=== PATIENT | female | born 1965 | race Caucasian/White ===

== ENCOUNTER 2016-05-14 01:47 | Emergency (ER) | payer MEDICARE, MEDICAID ==
[~2016-05-14] VITALS: Ht 175.3 cm; Wt 80.0 kg
[~2016-05-14 01:47] MED LIST: CLON2TAB2 PO; CLOZ100T18 PO; CLOZ50TA PO; LEVO50TA5 PO; LITH150C PO; LITH600C PO; LORA2TAB99 PO; METF10002 PO; METF850T2 PO
[2016-05-14 03:19] LABS: HEMOGLOBIN 12.4 g/dL (11.7-16.4)
[2016-05-14 03:32] LABS: BLOOD UREA NITROGEN 17 mg/dL (7-18)
[2016-05-14 03:37] LABS: ASPARTATE AMINO TRANSFERASE 19 U/L (15-37)
[2016-05-14 03:39] LABS: ACETAMINOPHEN < 2 mcg/mL (10-30)
[2016-05-14 04:04] VITALS: BP 98/63
== END 2016-05-14 05:34 | disposition home or self-care (01) ==
LOC: ED 05:17
DX: F29 Unspecified psychosis not due to a substance or known physiological condition (principal); F22 Delusional disorders; E11.9 Type 2 diabetes mellitus without complications
CPT/HCPCS: 36415; 80053; 80307; 80329; 85025; 99284; G0480

== ENCOUNTER 2016-12-19 12:36 | Emergency (ER) | payer MEDICARE, MEDICAID ==
[~2016-12-19] VITALS: Ht 172.7 cm; Wt 75.0 kg
[2016-12-19 12:47] VITALS: BP 91/55
[2016-12-19 13:06] LABS: HEMATOCRIT 41.9 % (34.6-47.8); WHITE BLOOD COUNT 7.5 x10^3/uL (3.4-10)
[2016-12-19 13:15] LABS: DAU SCREEN DISCLAIMER
[2016-12-19 13:18] LABS: BLOOD UREA NITROGEN 12 mg/dL (7-18)
[2016-12-19 13:24] LABS: ACETAMINOPHEN < 2 mcg/mL (10-30)
== END 2016-12-19 14:12 | disposition home or self-care (01) ==
LOC: ED 13:50
DX: F25.9 Schizoaffective disorder, unspecified (principal); E11.65 Type 2 diabetes mellitus with hyperglycemia; F41.9 Anxiety disorder, unspecified; G30.9 Alzheimer's disease, unspecified; F02.80 Dementia in other diseases classified elsewhere, unspecified severity, without behavioral disturbance, psychotic disturbance, mood disturbance, and anxiety
CPT/HCPCS: 36415; 80048; 80307; 80329; 81001; 82040; 84703; 85025; 87077; 87086; 87186; 99284; G0479; G0480

== ENCOUNTER 2017-08-10 09:19 | Emergency (ER) | payer MEDICARE, MEDICAID ==
[~2017-08-10] VITALS: Ht 170.2 cm; Wt 78.0 kg
[2017-08-10 09:22] VITALS: BP 132/74
== END 2017-08-10 10:28 | disposition home or self-care (01) ==
LOC: ED 10:18
DX: E11.9 Type 2 diabetes mellitus without complications (principal); F25.9 Schizoaffective disorder, unspecified; F32.9 Major depressive disorder, single episode, unspecified; G30.9 Alzheimer's disease, unspecified; F02.80 Dementia in other diseases classified elsewhere, unspecified severity, without behavioral disturbance, psychotic disturbance, mood disturbance, and anxiety; Z88.8 Allergy status to other drugs, medicaments and biological substances
CPT/HCPCS: 82962; 99282; 99283

== ENCOUNTER 2018-08-19 16:12 | Emergency (ER) | payer MEDICARE, MEDICAID ==
[~2018-08-19] VITALS: Ht 167.6 cm; Wt 70.0 kg
[~2018-08-19 16:12] MED LIST changes: -CLON2TAB2 PO; +CLON2TAB9 PO; +METF850T10 PO; -METF850T2 PO
[2018-08-19 16:21] VITALS: BP 136/74
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
[2018-08-19 16:47] LABS: BASOPHILS # (AUTO) 0.03 x10^3/uL (0-0.1); BASOPHILS % (AUTO) 0 % (0-1); EOSINOPHILS # (AUTO) 0.18 x10^3/uL (0-0.4); EOSINOPHILS % (AUTO) 2 % (1-7); LYMPHOCYTES # (AUTO) 2.41 x10^3/uL (1-3.4); LYMPHOCYTES % (AUTO) 28 % (22-44); MD NO; MEAN CORPUSCULAR HEMOGLOBIN 30.2 pg (27.0-34.8); MEAN CORPUSCULAR HGB CONC 33.3 g/dL (32.4-35.8); MEAN CORPUSCULAR VOLUME 90.8 fL (80-100); MEAN PLATELET VOLUME 8.2 fL (7.4-10.4); MONOCYTES # (AUTO) 0.49 x10^3/uL (0.2-0.8); MONOCYTES % (AUTO) 6 % (2-9); NEUTROPHILS # (AUTO) 5.55 x10^3/uL (1.8-6.8); NEUTROPHILS % (AUTO) 64 % (42-75); PLATELET COUNT 257 x10^3/uL (130-400); RED BLOOD COUNT 5.03 x10^6/uL (3.82-5.3); RED CELL DISTRIBUTION WIDTH 13.4 % (9.6-15.2)
[2018-08-19 16:58] LABS: ALANINE AMINOTRANSFERASE 24 U/L (12-78); ALBUMIN 3.9 g/dL (3.4-5.0); ANION GAP 5 mmol/L (5-15); CALCIUM 9.2 mg/dL (8.5-10.1); CHLORIDE 110 mmol/L (98-107); CREATININE 1.02 mg/dL (0.55-1.02); SALICYLATE LEVEL 3.8 mg/dL (2.8-20.0)
--- NOTE | 2018-08-19 17:07 | NUR ---
[facility] NOTIFIED, LEFT MESSAGE @ [id number]
[2018-08-19 17:09] LABS: ALKALINE PHOSPHATASE 124 U/L (45-117); BILIRUBIN,TOTAL 0.8 mg/dL (0.2-1.0); TOTAL PROTEIN 7.1 g/dL (6.4-8.2)
--- NOTE | 2018-08-19 17:19 | NUR ---
PT INSURANCE IS MEDICARE. SOC NOTIFIED AT [id number]
--- NOTE | 2018-08-19 18:13 | NUR ---
PT MORE QUIET AT THIS TIME. UOB TO BATHROOM. PT GAVE TOO SMALL OF A SAMPLE TO USE. IN ANSWER TO QUESTIONS, PT STATES SHE LIVES IN AN APARTMENT AT [facility] AND THAT SOMEONE BRINGS HER FOOD AND HELPS HER WITH MEDS BUT THEY DID NOT SHOW UP TODAY. PT STATES SHE IS MENTALLY ILL AND SO HER BROTHER DOESN'T TALK TO HER. PT PROVIDED FOOD TRAY
--- NOTE | 2018-08-19 18:21 | NUR ---
REPORT GIVEN TO SOC ABOUT HOW PT PRESENTED AND HOW SHE IS DOING NOW
--- NOTE | 2018-08-19 19:03 | NUR ---
INFORMED BY TELEPSYCH THAT HE IS RECOMMENDING INPATIENT PSYCH ADMISSION AND MAIL MANAGER. REPORT TO EVANGELINA PERALTA
--- NOTE | 2018-08-19 19:12 | NUR ---
REPORT OF PT FROM FABIAN FERNANDEZ AND ASSUMING CARE OF PT AT THIS TIME. PT AMBULATES TO RESTROOM SPEAKING WITH FLIGHT OF IDEAS. ERP NOTIFIED OF NEED FOR MEDICATIONS. DIABETIC EDUCATOR KASSANDRA INFORMED OF NEED FOR SITTER FOR DIRECT OBSERVATION OF PT AT ALL TIMES.
[2018-08-19] MEDS ORDERED: LORazepam 1MG TABLET ONE (19:44)
[2018-08-19] MEDS ORDERED: OLANZAPINE 5 MG TABLET ONE (19:44)
--- NOTE | 2018-08-19 19:49 | NUR ---
PT MEDICATED PER APR. PT URINE COLLECTED AND WALKED TO LAB.
[2018-08-19 19:57] LABS: MICROSCOPIC AUTO
[2018-08-19 19:58] LABS: CULTURE INDICATED? YES
[2018-08-19] MEDS ORDERED: LORazepam 1MG TABLET PO ONE (20:00)
[2018-08-19] MEDS ORDERED: OLANZAPINE 5 MG TABLET PO ONE (20:00)
--- NOTE | 2018-08-19 20:05 | NUR ---
tp: FAXED TO [facility]
[2018-08-19 20:14] LABS: AMPHETAMINE SCREEN, URINE Negative (Negative); BARBITURATE SCREEN, URINE Negative (Negative); BENZODIAZEPINE SCREEN, URINE Negative (Negative); CANNABINOID SCREEN, URINE Negative (Negative); COCAINE SCREEN, URINE Negative (Negative); METHADONE SCREEN, URINE Negative (Negative); OPIATE SCREEN, URINE Negative (Negative)
--- NOTE | 2018-08-19 20:34 | NUR ---
RECEIVED REPORT FROM FABIAN HUTCHINSON TO ASSUME CARE OF PT. PT. MOVED TO ED 38 AND ROOM IS SECURED WITH SITTER IN PERRIN.
--- NOTE | 2018-08-19 20:35 | NUR ---
LATE ENTRY: PT. BELONGINGS REMOVED AND SECURED IN LOCKER. PT. DENIES NEEDS.
--- NOTE | 2018-08-19 20:35 | NUR ---
TP:packet sent to all other facilities
--- NOTE | 2018-08-19 20:50 | NUR ---
[facility] AT TO EVAL PT. FOR ADMISSION.
[2018-08-19] MEDS ORDERED: ZIPRASIDONE 20 MG INJ IM PRN (21:30)
[2018-08-19] MEDS ORDERED: ACETAMINOPHEN 325 MG TABLET PO PRN (21:30)
[2018-08-19] MEDS ORDERED: DOCUSATE 100 MG CAPSULE PO PRN (21:30)
[2018-08-19] MEDS ORDERED: NICOTINE 14MG/24 HR PATCH.TD24 TD SCH (21:30)
[2018-08-19] MEDS ORDERED: NICOTINE 14MG/24 HR PATCH.TD24 ONE (21:34)
--- NOTE | 2018-08-19 21:43 | NUR ---
TP: leslie from [facility] declined pt.
--- NOTE | 2018-08-19 22:23 | NUR ---
REPORT CALLED TO FABIAN MCDANIEL. FLOOR NOT READY FOR PT. UNTIL REGISTRATIONS GIVES NEW V-NUMBER. 3E TO NOTIFY ED WHEN PT. CAN GO UP.
--- NOTE | 2018-08-19 22:30 | NUR ---
FLOOR READY FOR PT. TRANSPORT.
[2018-08-20] MEDS ORDERED: INSULIN REGULAR 100 UNITS/ML, 3ML VIAL SQ-INSULIN SCH (07:00)
== END 2018-08-19 22:31 ==
LOC: ED 16:28 → UNDOADMIN 19:40 → EDIP 19:40 → ED 22:31
DX: F29 Unspecified psychosis not due to a substance or known physiological condition (principal); F31.9 Bipolar disorder, unspecified; F20.9 Schizophrenia, unspecified; F41.1 Generalized anxiety disorder
CPT/HCPCS: 36415; 80053; 80307; 81001; 84443; 85025; 87086; 99285

== ENCOUNTER 2018-08-19 22:23 | Inpatient (IN) | payer MEDICARE, MEDICAID ==
[~2018-08-19] VITALS: Ht 172.7 cm; Wt 95.6 kg
[2018-08-19] MEDS ORDERED: ACETAMINOPHEN 325 MG TABLET PO PRN (22:30)
[2018-08-19] MEDS ORDERED: POLYETHYLENE GLYCOL 17 GM PACKET PO PRN (22:30)
[2018-08-19] MEDS ORDERED: DOCUSATE 100 MG CAPSULE PO PRN (22:30)
[2018-08-19] MEDS ORDERED: BISACODYL 10 MG SUPP PR PRN (22:30)
[2018-08-20 01:23] VITALS: BP 133/82
[2018-08-20] MEDS ORDERED: ACETAMINOPHEN 325 MG TABLET PO PRN (04:30)
[2018-08-20] MEDS ORDERED: LORazepam 1MG TABLET PO PRN (05:00)
[2018-08-20 07:00] VITALS: BP 122/87
[2018-08-20] MEDS ORDERED: metFORMIN 850 MG TABLET PO SCH (09:00)
[2018-08-20 10:24] LABS: BASOPHILS # (AUTO) 0.03 x10^3/uL (0-0.1); BASOPHILS % (AUTO) 0 % (0-1); EOSINOPHILS # (AUTO) 0.15 x10^3/uL (0-0.4); EOSINOPHILS % (AUTO) 2 % (1-7); LYMPHOCYTES # (AUTO) 1.55 x10^3/uL (1-3.4); LYMPHOCYTES % (AUTO) 25 % (22-44); MD NO; MEAN CORPUSCULAR HEMOGLOBIN 30.1 pg (27.0-34.8); MEAN CORPUSCULAR VOLUME 91.3 fL (80-100); MEAN PLATELET VOLUME 8.6 fL (7.4-10.4); MONOCYTES # (AUTO) 0.41 x10^3/uL (0.2-0.8); MONOCYTES % (AUTO) 7 % (2-9); NEUTROPHILS # (AUTO) 3.98 x10^3/uL (1.8-6.8); NEUTROPHILS % (AUTO) 65 % (42-75); PLATELET COUNT 212 x10^3/uL (130-400); RED BLOOD COUNT 4.63 x10^6/uL (3.82-5.3); RED CELL DISTRIBUTION WIDTH 13.4 % (9.6-15.2)
[2018-08-20 10:33] LABS: HCT (SEDRATE) 42.2 % (34.6-47.8)
[2018-08-20 10:34] LABS: ALANINE AMINOTRANSFERASE 25 U/L (12-78); CALCIUM 8.7 mg/dL (8.5-10.1); CHLORIDE 107 mmol/L (98-107)
[2018-08-20 10:59] LABS: ALBUMIN 3.5 g/dL (3.4-5.0); ALKALINE PHOSPHATASE 114 U/L (45-117); ANION GAP 6 mmol/L (5-15); BILIRUBIN,TOTAL 0.9 mg/dL (0.2-1.0); CHOLESTEROL, TOTAL 124 mg/dL (140-239); CREATININE 1.09 mg/dL (0.55-1.02); FREE T4 (FREE THYROXINE) 0.97 ng/dL (0.76-1.46); HDL CHOL % 33 % (28-40); HDL CHOLESTEROL (DIRECT) 41 mg/dL (40-60); LDL CHOLESTEROL,CALCULATED 49 mg/dL (54-169); LDL/HDL RATIO 1.2 (0.5-3.0); THYROID STIMULATING HORMONE 0.712 mIU/L (0.358-3.740); TOTAL PROTEIN 6.5 g/dL (6.4-8.2); TRIGLYCERIDES 170 mg/dL (50-200); VLDL CHOLESTEROL 34 mg/dL (0-25)
[2018-08-20] MEDS: LEVOTHYROXINE 50 MCG TABLET PO SCH ×2 (11:00→11:27)
[2018-08-20] MEDS: LITHIUM CARBONATE 300 MG CAPSULE PO SCH ×2 (11:25→20:14)
[2018-08-20] MEDS: NICOTINE 14MG/24 HR PATCH.TD24 TD SCH (11:28)
[2018-08-20] MEDS: metFORMIN 850 MG TABLET PO SCH ×2 (11:28→20:14)
[2018-08-20] MEDS: CLOZAPINE 50 MG HOMEMEDPO SCH (11:29)
[2018-08-20] MEDS: LORazepam 1MG TABLET PO PRN (17:12)
[2018-08-20] MEDS ORDERED: GLUCAGON 1 MG IM PRN (18:30)
[2018-08-20] MEDS ORDERED: DEXTROSE 4 GM TAB.CHEW PO PRN (18:30)
[2018-08-20] MEDS ORDERED: DEXTROSE 50%, 50ML SYRINGE IVPush PRN (18:30)
[2018-08-20 19:44] VITALS: BP 126/78
[2018-08-20] MEDS: SODIUM CHLORIDE FLUSH 10ML SYR IVF SCH (20:15)
[2018-08-20] MEDS: INSULIN LISPRO 100 UNITS/ML, PEN SQ-INSULIN SCH (20:53)
[2018-08-21] MEDS: OLANZAPINE 5 MG TABLET PO PRN ×2 (00:33→13:44)
[2018-08-21] MEDS: LORazepam 1MG TABLET PO PRN ×2 (00:34→13:44)
[2018-08-21 07:16] VITALS: BP 123/81
[2018-08-21] MEDS: INSULIN LISPRO 100 UNITS/ML, PEN SQ-INSULIN SCH ×4 (07:36→20:41)
[2018-08-21] MEDS: NICOTINE 14MG/24 HR PATCH.TD24 TD SCH (08:15)
[2018-08-21] MEDS: metFORMIN 850 MG TABLET PO SCH ×2 (08:15→20:39)
[2018-08-21] MEDS: LITHIUM CARBONATE 300 MG CAPSULE PO SCH ×2 (08:15→20:40)
[2018-08-21] MEDS: LEVOTHYROXINE 50 MCG TABLET PO SCH (08:15)
[2018-08-21] MEDS: CLOZAPINE 50 MG HOMEMEDPO SCH (08:16)
[2018-08-21] MEDS: SODIUM CHLORIDE FLUSH 10ML SYR IVF SCH ×2 (08:21→21:36)
[2018-08-21] MEDS ORDERED: ZIPRASIDONE 20 MG INJ IM PRN (16:30)
[2018-08-21] MEDS: ZIPRASIDONE 20MG CAPSULE PO SCH ×2 (17:38→20:39)
[2018-08-21 19:31] VITALS: BP 95/62
[2018-08-22 07:19] VITALS: BP 118/84
[2018-08-22] MEDS: INSULIN LISPRO 100 UNITS/ML, PEN SQ-INSULIN SCH ×4 (07:59→20:44)
[2018-08-22] MEDS: NICOTINE 14MG/24 HR PATCH.TD24 TD SCH (09:04)
[2018-08-22] MEDS: ZIPRASIDONE 20MG CAPSULE PO SCH ×2 (09:04→20:46)
[2018-08-22] MEDS: LEVOTHYROXINE 50 MCG TABLET PO SCH (09:04)
[2018-08-22] MEDS: SODIUM CHLORIDE FLUSH 10ML SYR IVF SCH ×2 (09:05→20:44)
[2018-08-22] MEDS: metFORMIN 850 MG TABLET PO SCH ×2 (09:05→20:45)
[2018-08-22] MEDS: LITHIUM CARBONATE 300 MG CAPSULE PO SCH ×2 (09:05→20:45)
[2018-08-22] MEDS: LORazepam 1MG TABLET PO PRN (11:24)
[2018-08-22] MEDS ORDERED: CLOZ50TA PO (19:07)
[2018-08-22] MEDS ORDERED: LEVO50TA5 PO (19:07)
[2018-08-22] MEDS ORDERED: METF850T10 PO (19:07)
[2018-08-22] MEDS ORDERED: LITH600C PO (19:07)
[2018-08-22 19:32] VITALS: BP 108/73
[2018-08-23] MEDS: LORazepam 1MG TABLET PO PRN (00:05)
[2018-08-23 07:49] VITALS: BP 130/85
[2018-08-23] MEDS: INSULIN LISPRO 100 UNITS/ML, PEN SQ-INSULIN SCH ×2 (08:01→11:48)
[2018-08-23] MEDS: SODIUM CHLORIDE FLUSH 10ML SYR IVF SCH (08:09)
[2018-08-23] MEDS: LITHIUM CARBONATE 300 MG CAPSULE PO SCH (08:09)
[2018-08-23] MEDS: metFORMIN 850 MG TABLET PO SCH (08:09)
[2018-08-23] MEDS: LEVOTHYROXINE 50 MCG TABLET PO SCH (08:09)
[2018-08-23] MEDS: ZIPRASIDONE 20MG CAPSULE PO SCH (08:09)
[2018-08-23] MEDS: NICOTINE 14MG/24 HR PATCH.TD24 TD SCH (08:10)
== END 2018-08-23 12:00 | disposition left against medical advice (07) | DRG 885 ==
LOC: 3E 22:52
PROVIDERS: ADMIT Counselor Mental Health; ATTEND Counselor Mental Health
DX: F25.0 Schizoaffective disorder, bipolar type (principal); E03.9 Hypothyroidism, unspecified; E11.65 Type 2 diabetes mellitus with hyperglycemia; Z53.21 Procedure and treatment not carried out due to patient leaving prior to being seen by health care provider; F17.210 Nicotine dependence, cigarettes, uncomplicated; Z91.14 Patient's other noncompliance with medication regimen; Z79.84 Long term (current) use of oral hypoglycemic drugs; Z88.8 Allergy status to other drugs, medicaments and biological substances
CPT/HCPCS: 36415; 71045; 80053; 80061; 80178; 82140; 82607; 82962; 84439; 84443; 84703; 85025; 85651; 86592; 93005; J3486; J1815

== ENCOUNTER 2018-08-26 10:43 | Inpatient (IN) | payer MEDICARE, MEDICAID ==
[~2018-08-26] VITALS: Ht 172.7 cm; Wt 113.6 kg
--- NOTE | 2018-08-26 10:55 | NUR ---
Iveth, [place] care provider with [facility], called asking about patient condition. Per Iveth, pt has history of pyschosis and non-compliance with psych medication. Iveth, care provider, provided home med list to RN.
[2018-08-26] MEDS ORDERED: METF500T17 PO (11:20)
[2018-08-26] MEDS ORDERED: GLIP5TAB10 PO (11:20)
[2018-08-26] MEDS ORDERED: BUPR-86 PO (11:20)
[2018-08-26] MEDS ORDERED: ZIPR20CA2 IM (11:25)
[2018-08-26] MEDS ORDERED: Propanolol PO (11:25)
[2018-08-26] MEDS ORDERED: PRAZ2CAP PO (11:27)
[2018-08-26] MEDS ORDERED: ZIPRASIDONE 20MG CAPSULE ONE (11:28)
[2018-08-26] MEDS ORDERED: ZIPRASIDONE 20MG CAPSULE PO ONE (11:30)
[2018-08-26] MEDS ORDERED: HALOPERIDOL 5 MG/ML IVPush ONE (11:30)
[2018-08-26 11:49] LABS: BASOPHILS # (AUTO) 0.02 x10^3/uL (0-0.1); BASOPHILS % (AUTO) 0 % (0-1); EOSINOPHILS # (AUTO) 0.06 x10^3/uL (0-0.4); EOSINOPHILS % (AUTO) 1 % (1-7); LYMPHOCYTES # (AUTO) 1.53 x10^3/uL (1-3.4); LYMPHOCYTES % (AUTO) 19 % (22-44); MD NO; MEAN CORPUSCULAR HEMOGLOBIN 29.3 pg (27.0-34.8); MEAN CORPUSCULAR HGB CONC 32.7 g/dL (32.4-35.8); MEAN CORPUSCULAR VOLUME 89.6 fL (80-100); MEAN PLATELET VOLUME 8.2 fL (7.4-10.4); MONOCYTES # (AUTO) 0.58 x10^3/uL (0.2-0.8); MONOCYTES % (AUTO) 7 % (2-9); NEUTROPHILS # (AUTO) 5.85 x10^3/uL (1.8-6.8); NEUTROPHILS % (AUTO) 73 % (42-75); PLATELET COUNT 234 x10^3/uL (130-400); RED BLOOD COUNT 4.91 x10^6/uL (3.82-5.3); RED CELL DISTRIBUTION WIDTH 13.5 % (9.6-15.2)
--- NOTE | 2018-08-26 11:50 | NUR ---
LATE NOTE ENTRY FOR 1047: Pt presents to Ed by EMS after [employer] found pt "wandering around town and trying to hop a fence." [employer] was sent to pt's home for a wellfare check and pt was not at home. Pt is AO to self and place. Pt's baseline unknown. Pt denies cp, sob, n/v/d, trauma. Pt states, "I am going to kill myself." Pt denies prior SA and pt denies plan. Pt makes statments of elopement. Pt has no neuro defeicits observed and reasoning skills with simple math problems are intact. Pt FSBG by EMS was 204. Pt has unlabored respirations with even chest rise and fall. Sitter near bedside. Call light within reach. Pt connected to NIBP cuff, continous pulse ox, and teletypesetter monitor. Both bedrails up for safety measures. Pt ambulates with steady gait and balance to restroom. Attempted to collect a clean catch UA, but pt unable to urinate into UA cup. Pt aware of need or UA.
[2018-08-26 11:55] LABS: ALANINE AMINOTRANSFERASE 29 U/L (12-78); ALBUMIN 4.2 g/dL (3.4-5.0); ANION GAP 9 mmol/L (5-15); CALCIUM 9.2 mg/dL (8.5-10.1); CHLORIDE 107 mmol/L (98-107); CREATININE 0.96 mg/dL (0.55-1.02)
--- NOTE | 2018-08-26 11:55 | NUR ---
Provided report to FABIAN Mahmood. All questions answered. Pt transfered from room 18 to room 41 with sitter. FABIAN Mahmood to assume care of pt.
[2018-08-26 11:57] LABS: ALKALINE PHOSPHATASE 122 U/L (45-117); BILIRUBIN,TOTAL 0.9 mg/dL (0.2-1.0); TOTAL PROTEIN 7.5 g/dL (6.4-8.2)
[2018-08-26 11:59] LABS: SALICYLATE LEVEL < 1.7 mg/dL (2.8-20.0)
--- NOTE | 2018-08-26 12:48 | NUR ---
Received report from Timoteo PERALTA. Assumed care; patient is awake, alert and oriented to self; denies SI, HI, AH, VH, TH, depression and anxiety; no complains of pain or discomfort at this time; she is eating her served lunch.; assisted to the toilet; sitter at bedside.
[2018-08-26 13:00] LABS: CULTURE INDICATED? YES; MICROSCOPIC AUTO
[2018-08-26 13:10] LABS: AMPHETAMINE SCREEN, URINE Negative (Negative); BARBITURATE SCREEN, URINE Negative (Negative); BENZODIAZEPINE SCREEN, URINE Negative (Negative); CANNABINOID SCREEN, URINE Negative (Negative); COCAINE SCREEN, URINE Negative (Negative); METHADONE SCREEN, URINE Negative (Negative); OPIATE SCREEN, URINE Negative (Negative)
--- NOTE | 2018-08-26 13:45 | NUR ---
Patient is resting on a gurney; not in distress; respiratiors unlabored; room secure; sitter by the hallway for continuous monitoring.
[2018-08-26] MEDS ORDERED: CEFDINIR 300 MG CAPSULE PO ONE (14:30)
[2018-08-26] MEDS ORDERED: CEFDINIR 300 MG CAPSULE ONE (14:33)
--- NOTE | 2018-08-26 14:40 | NUR ---
THROUGHPUT RN: Packet faxed to [facility], [facility], [facility], [facility], and [facility]
--- NOTE | 2018-08-26 14:42 | NUR ---
Patient is resting on a gurney; not in distress; unlabored respirations; room secure; sitter by the hallway for continuous monitoring; first dose of Omnicef given.
--- NOTE | 2018-08-26 14:58 | NUR ---
THROUGHPUT RN: Per RB, patient's chart is currently under review for admission.
--- NOTE | 2018-08-26 15:08 | NUR ---
THROUGHPUT RN: Confirmation fax received from [facility], [facility], [facility], [facility], [place], [facility]
--- NOTE | 2018-08-26 15:11 | NUR ---
THROUGHPUT RN: Patient denied by [facility]
--- NOTE | 2018-08-26 15:50 | NUR ---
Patient is awake, alert and oriented to self; watching TV at this time; able to make needs known. room secure; sitter by the hallway for continuous monitoring.
--- NOTE | 2018-08-26 16:50 | NUR ---
Patient is awake, watching TV; patient kept on asking if she can walk home; this nurse tried to re-orient her to the situation; room is secure; sitter by the hallway for continuous monitoring.
--- NOTE | 2018-08-26 17:17 | NUR ---
Patient started crying loudly and wanting to go home and leave ED; MD Fish notified; medication ordered.
[2018-08-26] MEDS ORDERED: LORazepam 1MG TABLET ONE ×2 (17:20→19:19)
[2018-08-26] MEDS ORDERED: LORazepam 1MG TABLET PO ONE (17:30)
--- NOTE | 2018-08-26 17:38 | NUR ---
Patient is awake watching TV, resting on the gurney; unlabored respirations; room is secure; sitter by the hallway.
--- NOTE | 2018-08-26 17:59 | NUR ---
Patient is currently eating her dinner; sitter by the hallway.
--- NOTE | 2018-08-26 18:40 | NUR ---
Report given to Timoteo PERALTA.
[2018-08-26] MEDS: LORazepam 1MG TABLET PO SCH (20:26)
--- NOTE | 2018-08-26 20:38 | NUR ---
PT RESTING AT THIS TIME. RESPS EVEN AND UNLABORED. SITTER IN HALLWAY
[2018-08-26] MEDS: PRAZOSIN 2 MG CAPSULE PO SCH (21:00)
[2018-08-26] MEDS: BUPROPION 75 MG TABLET PO SCH (21:00)
[2018-08-26] MEDS: ZIPRASIDONE 20MG CAPSULE PO SCH (21:00)
[2018-08-26] MEDS: LITHIUM CARBONATE 300 MG CAPSULE PO SCH (21:00)
[2018-08-26] MEDS: metFORMIN 500 MG TABLET PO SCH (21:00)
--- NOTE | 2018-08-26 22:11 | NUR ---
pt switched into hospital bed from [facility].
--- NOTE | 2018-08-26 22:18 | NUR ---
REPORT OF PT FROM FABIAN ARAUZ AND ASSUMING CARE OF PT AT THIS TIME.
--- NOTE | 2018-08-26 23:22 | NUR ---
PT ASLEEP IN [facility] AT THIS TIME; MARC. SITTER OUTSIDE OF PT ROOM FOR DIRECT OBSERVATION.
--- NOTE | 2018-08-27 00:18 | NUR ---
pt asleep in bed at this time; harsha. sitter outside of pt room for direct observation of pt.
--- NOTE | 2018-08-27 01:53 | NUR ---
pt asleep in [facility] at this time; harsha. sitter outside of pt room for direct observation of pt at this time.
--- NOTE | 2018-08-27 03:18 | NUR ---
PT ASLEEP IN [facility] AT THIS TIME; MARC. SITTER OUTSIDE OF ROOM FOR DIRECT OBSERVATION OF PT.
--- NOTE | 2018-08-27 04:30 | NUR ---
pt sleeping in [facility] at this time; harsha. pt has sitter outside of room for direct observation of pt.
--- NOTE | 2018-08-27 05:26 | NUR ---
pt sleeping in [facility] at this time; harsha. sitter outside of room for direct observation of pt.
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
[2018-08-27] MEDS ORDERED: ZIPRASIDONE 20MG CAPSULE ONE (08:42)
[2018-08-27] MEDS ORDERED: LORazepam 1MG TABLET ONE (08:43)
[2018-08-27] MEDS: LORazepam 1MG TABLET PO SCH ×2 (09:04→19:55)
[2018-08-27] MEDS: ZIPRASIDONE 20MG CAPSULE PO SCH ×2 (09:04→19:55)
[2018-08-27] MEDS: metFORMIN 500 MG TABLET PO SCH ×2 (09:18→19:55)
[2018-08-27] MEDS: BUPROPION 75 MG TABLET PO SCH ×2 (09:21→23:25)
[2018-08-27] MEDS: LEVOTHYROXINE 50 MCG TABLET PO SCH (09:22)
[2018-08-27] MEDS: LITHIUM CARBONATE 300 MG CAPSULE PO SCH ×2 (09:30→19:55)
--- NOTE | 2018-08-27 10:16 | NUR ---
Client is calm, cooperative. She has taken her medications, eaten all of her meal tray. Currently resting in her room, on constant watch by staff.
--- NOTE | 2018-08-27 12:32 | NUR ---
Meal tray ordered. NAD
--- NOTE | 2018-08-27 13:36 | NUR ---
bedside report from vicky rn, pt walking in [place] with aide to "stretch legs". no needs at this time
[2018-08-27 14:23] VITALS: BP 105/70
[2018-08-27 19:17] VITALS: BP 137/92
[2018-08-27] MEDS: CEFDINIR 300 MG CAPSULE PO SCH (19:55)
[2018-08-27] MEDS: PRAZOSIN 2 MG CAPSULE PO SCH (19:55)
[2018-08-27] MEDS ORDERED: NICOTINE 14MG/24 HR PATCH.TD24 TD PRN (21:00)
[2018-08-28 08:26] VITALS: BP 103/70
[2018-08-28] MEDS: LORazepam 1MG TABLET PO SCH ×2 (08:49→20:05)
[2018-08-28] MEDS: ZIPRASIDONE 20MG CAPSULE PO SCH ×2 (08:49→20:05)
[2018-08-28] MEDS: LITHIUM CARBONATE 300 MG CAPSULE PO SCH ×2 (08:50→20:05)
[2018-08-28] MEDS: CEFDINIR 300 MG CAPSULE PO SCH ×2 (08:50→20:05)
[2018-08-28] MEDS: LEVOTHYROXINE 50 MCG TABLET PO SCH (08:53)
[2018-08-28] MEDS: metFORMIN 500 MG TABLET PO SCH ×2 (08:53→20:04)
[2018-08-28] MEDS: BUPROPION 75 MG TABLET PO SCH (08:54)
[2018-08-28] MEDS: LORazepam 1MG TABLET PO PRN (14:32)
[2018-08-28] MEDS ORDERED: ZIPRASIDONE 20MG CAPSULE PO PRN (15:00)
[2018-08-28] MEDS ORDERED: ZIPRASIDONE 20MG CAPSULE PO ONE (15:30)
[2018-08-28 19:09] VITALS: BP 131/79
[2018-08-29] MEDS: LORazepam 1MG TABLET PO PRN ×2 (00:20→16:33)
[2018-08-29 07:05] VITALS: BP 131/92
[2018-08-29] MEDS: LEVOTHYROXINE 50 MCG TABLET PO SCH (07:25)
[2018-08-29] MEDS: LORazepam 1MG TABLET PO SCH ×2 (07:42→19:46)
[2018-08-29] MEDS: ZIPRASIDONE 20MG CAPSULE PO SCH ×2 (07:43→19:45)
[2018-08-29] MEDS: LITHIUM CARBONATE 300 MG CAPSULE PO SCH ×2 (07:44→19:45)
[2018-08-29] MEDS: metFORMIN 500 MG TABLET PO SCH ×2 (07:44→19:45)
[2018-08-29] MEDS: CEFDINIR 300 MG CAPSULE PO SCH (07:45)
[2018-08-29] MEDS: ZIPRASIDONE 20 MG INJ IM PRN (16:32)
[2018-08-30] MEDS: ZIPRASIDONE 20MG CAPSULE PO SCH ×2 (07:40→22:52)
[2018-08-30] MEDS: LITHIUM CARBONATE 300 MG CAPSULE PO SCH ×2 (07:41→22:51)
[2018-08-30] MEDS: LORazepam 1MG TABLET PO SCH ×2 (07:42→23:00)
[2018-08-30] MEDS: metFORMIN 500 MG TABLET PO SCH ×2 (07:42→22:51)
[2018-08-30] MEDS: LEVOTHYROXINE 50 MCG TABLET PO SCH (07:42)
[2018-08-30 08:37] VITALS: BP 109/74
[2018-08-30] MEDS: ACETAMINOPHEN 325 MG TABLET PO PRN (10:54)
[2018-08-30] MEDS: ARIPIPRAZOLE 10 MG TABLET PO SCH (11:49)
[2018-08-30] MEDS: ZIPRASIDONE 20 MG INJ IM PRN (12:55)
[2018-08-30 22:52] VITALS: BP 130/70
[2018-08-30] MEDS: TEMAZEPAM 15 MG CAPSULE PO PRN (22:52)
[2018-08-31] MEDS: LEVOTHYROXINE 50 MCG TABLET PO SCH (07:27)
[2018-08-31] MEDS: ARIPIPRAZOLE 10 MG TABLET PO SCH (07:36)
[2018-08-31] MEDS: metFORMIN 500 MG TABLET PO SCH ×2 (07:37→20:00)
[2018-08-31] MEDS: LORazepam 1MG TABLET PO SCH ×2 (07:38→20:00)
[2018-08-31] MEDS: ZIPRASIDONE 20MG CAPSULE PO SCH ×2 (07:38→20:00)
[2018-08-31] MEDS: LITHIUM CARBONATE 300 MG CAPSULE PO SCH ×2 (07:38→18:53)
[2018-08-31] MEDS: ACETAMINOPHEN 325 MG TABLET PO PRN (08:17)
[2018-08-31 08:35] VITALS: BP 125/72
[2018-08-31] MEDS: LORazepam 1MG TABLET PO PRN (17:04)
[2018-08-31] MEDS: PROPRANOLOL 20 MG TABLET PO SCH (17:04)
[2018-08-31 19:19] VITALS: BP 142/76
[2018-08-31] MEDS: TEMAZEPAM 15 MG CAPSULE PO PRN (20:41)
[2018-09-01] MEDS: LORazepam 1MG TABLET PO PRN ×2 (01:14→14:36)
[2018-09-01] MEDS: PROPRANOLOL 20 MG TABLET PO SCH ×2 (06:36→18:17)
[2018-09-01] MEDS: LEVOTHYROXINE 50 MCG TABLET PO SCH (06:36)
[2018-09-01 06:57] VITALS: BP 125/76
[2018-09-01] MEDS: metFORMIN 500 MG TABLET PO SCH ×2 (07:42→19:58)
[2018-09-01] MEDS: LORazepam 1MG TABLET PO SCH ×2 (07:42→19:58)
[2018-09-01] MEDS: ARIPIPRAZOLE 10 MG TABLET PO SCH (07:43)
[2018-09-01] MEDS: LITHIUM CARBONATE 300 MG CAPSULE PO SCH ×2 (07:43→19:59)
[2018-09-01] MEDS: ZIPRASIDONE 20MG CAPSULE PO SCH ×2 (08:34→19:59)
[2018-09-01] MEDS: ZIPRASIDONE 20 MG INJ IM PRN (14:38)
[2018-09-01 19:08] VITALS: BP 123/76
[2018-09-01] MEDS: TEMAZEPAM 15 MG CAPSULE PO PRN (20:42)
[2018-09-02] MEDS: LORazepam 1MG TABLET PO PRN ×3 (01:21→14:28)
[2018-09-02] MEDS: PROPRANOLOL 20 MG TABLET PO SCH ×2 (05:03→17:14)
[2018-09-02] MEDS: LEVOTHYROXINE 50 MCG TABLET PO SCH (05:03)
[2018-09-02] MEDS: LORazepam 1MG TABLET PO SCH ×2 (07:38→20:07)
[2018-09-02] MEDS: ARIPIPRAZOLE 10 MG TABLET PO SCH (07:39)
[2018-09-02] MEDS: ZIPRASIDONE 20MG CAPSULE PO SCH ×2 (07:39→20:06)
[2018-09-02] MEDS: metFORMIN 500 MG TABLET PO SCH ×2 (07:39→21:00)
[2018-09-02] MEDS: LITHIUM CARBONATE 300 MG CAPSULE PO SCH ×2 (07:39→20:07)
[2018-09-02 07:52] VITALS: BP 120/82
[2018-09-02] MEDS: ZIPRASIDONE 20 MG INJ IM PRN (11:50)
[2018-09-02] MEDS: TEMAZEPAM 15 MG CAPSULE PO PRN (20:07)
[2018-09-03] MEDS: LORazepam 1MG TABLET PO PRN (02:38)
[2018-09-03] MEDS: ZIPRASIDONE 20 MG INJ IM PRN ×2 (03:49→12:20)
[2018-09-03] MEDS: LEVOTHYROXINE 50 MCG TABLET PO SCH (07:01)
[2018-09-03] MEDS: PROPRANOLOL 20 MG TABLET PO SCH ×2 (07:02→18:00)
[2018-09-03] MEDS: LITHIUM CARBONATE 300 MG CAPSULE PO SCH ×2 (07:35→20:42)
[2018-09-03] MEDS: ARIPIPRAZOLE 10 MG TABLET PO SCH (07:35)
[2018-09-03] MEDS: metFORMIN 500 MG TABLET PO SCH ×2 (07:35→21:00)
[2018-09-03] MEDS: LORazepam 1MG TABLET PO SCH (07:35)
[2018-09-03] MEDS: ZIPRASIDONE 20MG CAPSULE PO SCH (07:36)
[2018-09-03 08:12] VITALS: BP 126/82
[2018-09-03 18:59] VITALS: BP 120/74
[2018-09-03] MEDS ORDERED: LOPERAMIDE 2 MG CAPSULE PO PRN (19:00)
[2018-09-03] MEDS: TEMAZEPAM 15 MG CAPSULE PO PRN (20:42)
[2018-09-03] MEDS: DIAZEPAM 10 MG TABLET PO PRN (20:42)
[2018-09-03] MEDS: QUETIAPINE 100MG TABLET PO SCH (20:42)
[2018-09-04] MEDS: PROPRANOLOL 20 MG TABLET PO SCH ×2 (07:21→18:09)
[2018-09-04] MEDS: LEVOTHYROXINE 50 MCG TABLET PO SCH (07:21)
[2018-09-04 07:37] VITALS: BP 108/67
[2018-09-04] MEDS: ARIPIPRAZOLE 5 MG TABLET PO SCH (07:44)
[2018-09-04] MEDS: LITHIUM CARBONATE 300 MG CAPSULE PO SCH ×2 (07:46→21:45)
[2018-09-04] MEDS: QUETIAPINE 100MG TABLET PO SCH ×2 (07:47→21:44)
[2018-09-04] MEDS: metFORMIN 500 MG TABLET PO SCH ×2 (07:47→21:43)
[2018-09-04 19:10] VITALS: BP 143/80
[2018-09-05] MEDS ORDERED: DIAZEPAM 5 MG TABLET ONE ×2 (01:00→08:40)
[2018-09-05] MEDS: DIAZEPAM 10 MG TABLET PO PRN ×3 (01:04→23:19)
[2018-09-05] MEDS: TEMAZEPAM 15 MG CAPSULE PO PRN ×2 (01:04→23:28)
[2018-09-05] MEDS: LITHIUM CARBONATE 300 MG CAPSULE PO SCH ×2 (08:04→21:11)
[2018-09-05] MEDS: LEVOTHYROXINE 50 MCG TABLET PO SCH (08:05)
[2018-09-05] MEDS: PROPRANOLOL 20 MG TABLET PO SCH ×2 (08:05→17:57)
[2018-09-05] MEDS: QUETIAPINE 100MG TABLET PO SCH ×2 (08:06→21:10)
[2018-09-05] MEDS: metFORMIN 500 MG TABLET PO SCH ×2 (08:06→21:11)
[2018-09-05] MEDS: ARIPIPRAZOLE 5 MG TABLET PO SCH ×2 (08:10→11:38)
[2018-09-05 19:14] VITALS: BP 126/77
[2018-09-06] MEDS: LEVOTHYROXINE 50 MCG TABLET PO SCH (08:57)
[2018-09-06] MEDS: QUETIAPINE 100MG TABLET PO SCH ×2 (08:59→20:55)
[2018-09-06] MEDS: LITHIUM CARBONATE 300 MG CAPSULE PO SCH ×2 (08:59→20:55)
[2018-09-06] MEDS: ARIPIPRAZOLE 5 MG TABLET PO SCH (09:00)
[2018-09-06] MEDS: PROPRANOLOL 20 MG TABLET PO SCH ×2 (09:00→20:55)
[2018-09-06 09:02] VITALS: BP 133/80
[2018-09-06] MEDS: metFORMIN 500 MG TABLET PO SCH ×2 (09:04→20:54)
[2018-09-06] MEDS ORDERED: DIAZEPAM 5 MG TABLET ONE (09:43)
[2018-09-06] MEDS: DIAZEPAM 10 MG TABLET PO PRN (11:00)
[2018-09-06 20:53] VITALS: BP 122/70
== END 2018-09-07 02:00 | DRG 885 ==
LOC: ED 18:13 → EDIP 08-27 10:41 → INTOOBSV 08-27 10:41 → 2N 08-27 14:34 → OBSVTOIN 08-27 18:01 → 4NOR 08-31 18:41 → ICU 09-03 12:09
PROVIDERS: ADMIT Internal Medicine; ATTEND Internal Medicine
DX: F25.0 Schizoaffective disorder, bipolar type (principal); Z91.83 Wandering in diseases classified elsewhere; F32.9 Major depressive disorder, single episode, unspecified; E03.9 Hypothyroidism, unspecified; E11.9 Type 2 diabetes mellitus without complications; F02.80 Dementia in other diseases classified elsewhere, unspecified severity, without behavioral disturbance, psychotic disturbance, mood disturbance, and anxiety; F17.210 Nicotine dependence, cigarettes, uncomplicated; F41.1 Generalized anxiety disorder; G30.9 Alzheimer's disease, unspecified; N30.90 Cystitis, unspecified without hematuria; Z79.84 Long term (current) use of oral hypoglycemic drugs; Z88.8 Allergy status to other drugs, medicaments and biological substances
CPT/HCPCS: 36415; 80053; 80178; 80307; 81001; 85025; 87086; G0378; J3486

== ENCOUNTER 2018-10-02 15:28 | Emergency (ER) | payer MEDICARE, MEDICAID ==
[~2018-10-02] VITALS: Ht 167.6 cm; Wt 85.0 kg
[~2018-10-02 15:28] MED LIST changes: +BUPR-86 PO; +GLIP5TAB10 PO; +METF500T17 PO; +PRAZ2CAP PO; +Propanolol PO; +ZIPR20CA2 IM
[2018-10-02 15:48] VITALS: BP 114/64
--- NOTE | 2018-10-02 16:00 | NUR ---
pt jason mathew from [facility] for n/v x1 day. pt jenaro am cooperative. sitter at doorway for sontinuous monitoring. assessment complete. orders received. ua collected and sent. labs drawn. awaiting resutls.
[2018-10-02 16:01] LABS: BASOPHILS # (AUTO) 0.03 x10^3/uL (0-0.1); BASOPHILS % (AUTO) 0 % (0-1); EOSINOPHILS # (AUTO) 0.15 x10^3/uL (0-0.4); EOSINOPHILS % (AUTO) 2 % (1-7); LYMPHOCYTES # (AUTO) 1.97 x10^3/uL (1-3.4); LYMPHOCYTES % (AUTO) 30 % (22-44); MD NO; MEAN CORPUSCULAR HEMOGLOBIN 29.3 pg (27.0-34.8); MEAN CORPUSCULAR VOLUME 91.6 fL (80-100); MEAN PLATELET VOLUME 8.3 fL (7.4-10.4); MONOCYTES % (AUTO) 8 % (2-9); NEUTROPHILS % (AUTO) 60 % (42-75); PLATELET COUNT 221 x10^3/uL (130-400); RED BLOOD COUNT 4.64 x10^6/uL (3.82-5.3)
[2018-10-02 16:09] LABS: ALANINE AMINOTRANSFERASE 27 U/L (12-78); ALBUMIN 3.5 g/dL (3.4-5.0); ANION GAP 9 mmol/L (5-15); CALCIUM 9.2 mg/dL (8.5-10.1); CHLORIDE 106 mmol/L (98-107); CREATININE 1.19 mg/dL (0.55-1.02)
[2018-10-02 16:11] LABS: ALKALINE PHOSPHATASE 91 U/L (45-117); BILIRUBIN,TOTAL 0.2 mg/dL (0.2-1.0); TOTAL PROTEIN 6.8 g/dL (6.4-8.2)
[2018-10-02 16:20] LABS: MICROSCOPIC AUTO
[2018-10-02 16:25] LABS: CULTURE INDICATED? YES
[2018-10-02] MEDS ORDERED: MAGNESIUM CITRATE 300ML ORAL SOL ONE (16:47)
[2018-10-02] MEDS ORDERED: MAGNESIUM CITRATE 300ML ORAL SOL PO ONE (17:00)
--- NOTE | 2018-10-02 17:02 | NUR ---
report to diaz rolon at [facility]. pt ready for transport.
== END 2018-10-02 17:28 ==
LOC: ED 17:22
DX: N30.00 Acute cystitis without hematuria (principal); K59.00 Constipation, unspecified; F25.9 Schizoaffective disorder, unspecified; F32.9 Major depressive disorder, single episode, unspecified; G30.9 Alzheimer's disease, unspecified; F02.80 Dementia in other diseases classified elsewhere, unspecified severity, without behavioral disturbance, psychotic disturbance, mood disturbance, and anxiety; F41.1 Generalized anxiety disorder; E11.9 Type 2 diabetes mellitus without complications
CPT/HCPCS: 36415; 74021; 80053; 81001; 83690; 85025; 87086; 99285

== ENCOUNTER 2019-08-13 12:35 | Emergency (ER) | payer MEDICARE, MEDICAID ==
[~2019-08-13] VITALS: Ht 172.7 cm; Wt 82.0 kg
--- NOTE | 2019-08-13 13:02 | NUR ---
PT BIB [facility], PT STATES SI, STATES WILL HANG HERSELF. PT STATES THE PEOPLE WHERE SHE LIVES ARE "MEAN TO ME, AND IT MAKES ME UPSET." PT UNDRESSED, BELONGINGS IN BAG, IN GOWN ONLY, BELONGINGS LOCKED FOR SAFETY. PT HAS SITTER AT BEDSIDE. ROOM PARTIALLY SECURED, PT REMAINS ON MONITORS, PT IS BRADYCARDIAC IN THE 40'S. URINE COLLECTED AND SENT TO LAB. HARRY PALENCIA NP AT BEDSIDE FOR ASSESSMENT. ERMD AWARE, PT IS BRADYCARDIAC, PT TAKES PROPANOLOL.
--- NOTE | 2019-08-13 13:11 | NUR ---
1 OF 1 BAG OF BELONGINGS PLACED IN PSYCH LOCKER FOR ROOM 2
[2019-08-13 13:15] LABS: BASOPHILS # (AUTO) 0.06 x10^3/uL (0-0.1); BASOPHILS % (AUTO) 1 % (0-1); EOSINOPHILS # (AUTO) 0.28 x10^3/uL (0-0.4); EOSINOPHILS % (AUTO) 4 % (1-7); LYMPHOCYTES # (AUTO) 2.38 x10^3/uL (1-3.4); LYMPHOCYTES % (AUTO) 31 % (22-44); MD NO; MEAN CORPUSCULAR HEMOGLOBIN 31.2 pg (27.0-34.8); MEAN CORPUSCULAR HGB CONC 32.8 g/dL (32.4-35.8); MEAN CORPUSCULAR VOLUME 95.2 fL (80-100); MEAN PLATELET VOLUME 7.8 fL (7.4-10.4); MONOCYTES # (AUTO) 0.49 x10^3/uL (0.2-0.8); MONOCYTES % (AUTO) 6 % (2-9); NEUTROPHILS # (AUTO) 4.45 x10^3/uL (1.8-6.8); NEUTROPHILS % (AUTO) 58 % (42-75); PLATELET COUNT 333 x10^3/uL (130-400); RED BLOOD COUNT 4.07 x10^6/uL (3.82-5.3); RED CELL DISTRIBUTION WIDTH 14.1 % (9.6-15.2)
[2019-08-13 13:26] LABS: ALBUMIN 3.5 g/dL (3.4-5.0); ANION GAP 4 mmol/L (5-15); CALCIUM 9.1 mg/dL (8.5-10.1); CHLORIDE 109 mmol/L (98-107); CREATININE 0.82 mg/dL (0.55-1.02)
[2019-08-13 13:27] LABS: BARBITURATE SCREEN, URINE Negative (Negative); BENZODIAZEPINE SCREEN, URINE Positive (Negative); CANNABINOID SCREEN, URINE Negative (Negative); COCAINE SCREEN, URINE Negative (Negative); METHADONE SCREEN, URINE Negative (Negative); OPIATE SCREEN, URINE Negative (Negative)
[2019-08-13 13:32] LABS: AMPHETAMINE SCREEN, URINE Negative (Negative)
[2019-08-13 13:36] LABS: SALICYLATE LEVEL < 1.7 mg/dL (2.8-20.0)
[2019-08-13] MEDS ORDERED: OLANZAPINE 10 MG TABLET PO SCH (14:00)
--- NOTE | 2019-08-13 14:05 | NUR ---
PT RESTING IN BED, EATING MEAL TRAY. PT REMAINS ON MONITORS, HR REMAINS IN 40'S PT OTHRWISE ASYMPTOMATIC. SITTER AT BEDSIDE. PT IS ON LEGAL HOLD. PT CALM AND COOPERATIVE. CONT TO MONITOR.
[2019-08-13] MEDS ORDERED: OLANZAPINE 10 MG TABLET ONE (14:25)
[2019-08-13] MEDS ORDERED: LITH300C PO (15:40)
[2019-08-13] MEDS ORDERED: ARIP2TAB2 PO (15:41)
[2019-08-13] MEDS ORDERED: ATOR20TA37 PO (15:42)
[2019-08-13] MEDS ORDERED: CITA10TA4 PO (15:42)
[2019-08-13] MEDS ORDERED: ATOR20TA PO (15:43)
--- NOTE | 2019-08-13 15:45 | NUR ---
REPORT GIVEN TO DHEERAJ PERALTA. PT OK TO TRANSFER TO PSYCH FLOOR.
--- NOTE | 2019-08-13 16:08 | NUR ---
PT TRANSFERED TO FLOOR. PT HAS ALL OWN BELONGINGS UPON TRANSFER.
[2019-08-13 16:14] VITALS: BP 110/68
[2019-08-13] MEDS ORDERED: BENZTROPINE 1 MG TABLET PO SCH (21:00)
[2019-08-13] MEDS ORDERED: DONEPEZIL 5 MG TABLET PO SCH (21:00)
== END 2019-08-13 17:44 | disposition other institution (70) ==
LOC: ED 14:16
DX: R45.851 Suicidal ideations (principal); E11.9 Type 2 diabetes mellitus without complications; F25.9 Schizoaffective disorder, unspecified; R00.1 Bradycardia, unspecified
CPT/HCPCS: 36415; 80048; 80178; 80307; 82040; 84443; 85025; 93005; 99284

== ENCOUNTER 2019-08-30 20:41 | Emergency (ER) | payer MEDICARE, MEDICAID ==
[~2019-08-30] VITALS: Ht 170.2 cm; Wt 82.0 kg
[~2019-08-30 20:41] MED LIST changes: +ARIP2TAB2 PO; +ATOR20TA PO; +ATOR20TA37 PO; +CITA10TA4 PO; +CITA20TA9 PO; +DONE5TAB52 PO; +HYDR50CA2 PO; +LITH300C PO; +METF500T PO; +OLAN10TA7 PO
--- NOTE | 2019-08-30 20:45 | NUR ---
pt BIB [facility] after being found laying on the street outside [facility]. pt has no medical complaint. pt is unaware of day or date or month, but knows that she is in [place] and is able to answer other questions and follow commands. pt has no shoes on and states that she lives in [place]. no obvious injury and denies injury. no apparent distress. no family at bedside
--- NOTE | 2019-08-30 21:20 | NUR ---
pt has been evaluated by ALEXANDER and has no medical complaint. pt reports that she is staying at [facility]. Attempting to contact [facility] staff to see if she can be sent back to their facility
--- NOTE | 2019-08-30 21:50 | NUR ---
attempted to contact [facility] again regarding if pt is a resident. awaiting call back
--- NOTE | 2019-08-30 22:26 | NUR ---
located housing manageer at [facility] to confirm that pt is a resident in their housing facility on [facility]. Publicity Expert Caro Barriga will be sending someone to pick her up
--- NOTE | 2019-08-30 22:30 | NUR ---
pt has been updaed on POC. pt is calm and cooperative. non-skid socks given as pt is not wearin shoes. PO fluids and snack given. pt sitting up on gurney watching TV. no apparent distress
[2019-08-30 22:59] VITALS: BP 107/66
== END 2019-08-30 23:05 | disposition home or self-care (01) ==
LOC: ED 22:30
DX: F20.9 Schizophrenia, unspecified (principal); E11.9 Type 2 diabetes mellitus without complications; F17.290 Nicotine dependence, other tobacco product, uncomplicated
CPT/HCPCS: 99284; 99406

== ENCOUNTER 2019-09-19 19:09 | Emergency (ER) | payer MEDICARE, MEDICAID ==
[~2019-09-19] VITALS: Ht 172.7 cm; Wt 82.0 kg
[2019-09-19 19:18] VITALS: BP 112/75
--- NOTE | 2019-09-19 20:07 | NUR ---
TASK RN: PT CHECKED INTO ROOM AT THIS TIME. KAJAL RN, AT FOR PT HISTORY AND ASSESSMENT. PT AMBULATED TO RESTROOM WITH SLOW BUT STEADY GAIT TO OBTAIN UA/UDS, BUT PT UNABLE TO VOID AT THIS TIME. PT BELONGINGS COLLECTED AND PLACED IN 1 OF 1 BAGS IN LOCKED STORAGE IN CORRECT BIN. PT ROOM SECURED FOR PT AND STAFF SAFETY. PT PROVIDED WARM BLANKET. PT VERBALIZES UNDERSTANDING OF ER PROCESS AND VERBALIZES UNDERSTANDING. SITTER OUTSIDE OF PT ROOM FOR DIRECT OBSERVATION OF PT AT THIS TIME.
--- NOTE | 2019-09-19 21:26 | NUR ---
PT WAS SENT TO US WITH A SIMPLE HANDWRITTEN MAR FROM SENDING FACILITY, NO OTHER PAPERWORK. CONTACT WITH PROVIDED NUMBER IS NOT POSSIBLE AFTER 6PM. PT AWAITING DISCHARGE, BUT UNABLE TO COMMUNICATE AN ADDRESS. NO CONTACTS ON FILE TO CALL. [facility] STATES THAT THEY HAVE NO ALTERNATIVE NUMBERS, AND HAVE NO WAY TO GET MESSAGES THROUGH TO ANY WELLCARE FACILITIES AFTER HOURS. THIS NURSE WAS INFORMED THAT ALL MESSAGES LEFT IN [place] NIGHT WILL BE ADDRESSED AFTER 9AM THE NEXT BUSINESS DAY. ERP AND CHARGE MADE AWARE. PT PROVIDED WITH WARM BLANKETS. DENIES ANY FURTHER NEEDS AT THIS TIME. CALL LIGHT IN REACH.
--- NOTE | 2019-09-19 22:02 | NUR ---
LITZY, CREDIT DIRECTOR FOR THE WELLCARE DETENTION CONTACTED. STATES PT IS FREE TO COME BACK, REQUESTED AN ANTI NAUSEA MEDICATION OR NOTE TO OK OTC MEDS FROM PROVIDER. ERP NOTIFIED. PT UPDATED ON PLAN OF CARE. TAXI VOUCHER PROVIDED. PT DENIES ANY NEEDS OR CONCERNS AT THIS TIME.
--- NOTE | 2019-09-19 22:35 | NUR ---
PT FEET WASHED, PROVIDED WITH DONATION CLOTHING. PROVIDED WITH TAXI VOUCHER. PT ASSISTED IN DRESSING AND TO DISCHARGE DESK. DENIES ANY FURTHER QUESTIONS OR CONCERNS.
== END 2019-09-19 22:39 | disposition home or self-care (01) ==
LOC: ED 22:30
DX: F25.9 Schizoaffective disorder, unspecified (principal); G30.9 Alzheimer's disease, unspecified; F02.80 Dementia in other diseases classified elsewhere, unspecified severity, without behavioral disturbance, psychotic disturbance, mood disturbance, and anxiety; F32.0 Major depressive disorder, single episode, mild; R11.0 Nausea; E11.9 Type 2 diabetes mellitus without complications
CPT/HCPCS: 99283

== ENCOUNTER 2020-05-29 19:42 | Emergency (ER) | payer MEDICARE, MEDICAID ==
[~2020-05-29] VITALS: Ht 175.3 cm; Wt 82.0 kg
[~2020-05-29 19:42] MED LIST changes: +BENZ0.5T35 PO; +CHOL10003 PO; +DIAZ2TAB3 PO; +LIDO700A20 TD; +MEMA5TAB42 PO; +NICO-485 TD; +PROP80CA3 PO; +PSYL3.4P5 PO
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
[2020-05-29 21:21] LABS: AMPHETAMINE SCREEN, URINE Negative (Negative); BARBITURATE SCREEN, URINE Negative (Negative); BENZODIAZEPINE SCREEN, URINE Positive (Negative); CANNABINOID SCREEN, URINE Negative (Negative); COCAINE SCREEN, URINE Negative (Negative); METHADONE SCREEN, URINE Negative (Negative); OPIATE SCREEN, URINE Negative (Negative)
[2020-05-29 21:23] LABS: BASOPHILS % (AUTO) 1 % (0-1); EOSINOPHILS % (AUTO) 2 % (1-7); LYMPHOCYTES % (AUTO) 31 % (22-44); MEAN CORPUSCULAR HEMOGLOBIN 31.2 pg (27.0-34.8); MEAN CORPUSCULAR HGB CONC 33.5 g/dL (32.4-35.8); MEAN PLATELET VOLUME 8.1 fL (7.4-10.4); MONOCYTES % (AUTO) 8 % (2-9); NEUTROPHILS % (AUTO) 59 % (42-75); PLATELET COUNT 256 x10^3/uL (130-400); RED BLOOD COUNT 4.32 x10^6/uL (3.82-5.3)
[2020-05-29 21:29] LABS: MD NO
[2020-05-29 21:35] LABS: ALBUMIN 3.9 g/dL (3.4-5.0); ANION GAP 4 mmol/L (5-15); CALCIUM 9.1 mg/dL (8.5-10.1); CHLORIDE 110 mmol/L (98-107); CREATININE 0.87 mg/dL (0.55-1.02)
[2020-05-29 21:36] LABS: SALICYLATE LEVEL < 1.7 mg/dL (2.8-20.0)
--- NOTE | 2020-05-29 21:41 | NUR ---
Pt ambulated to BR without difficulty. UA provided and sent. Pt back to bed, calm in room, waiting on telepsych. Sitter outside room. Pt free of harm. Will continue to monitor.
--- NOTE | 2020-05-30 03:00 | NUR ---
Telepsych evaluated patient and ok to DC. penitentiary notified and pt ok to head back to [facility]. All belonging given back to patient. Pt DC'd with taxi back to [facility]. Patient/Caregiver given discharge instructions and they have confirmed that they understand the instructions. Patient ambulatory with steady gait.
[2020-05-30 03:21] VITALS: BP 136/82
== END 2020-05-30 03:26 | disposition home or self-care (01) ==
LOC: ED 05-30 02:56
DX: F25.9 Schizoaffective disorder, unspecified (principal); R45.851 Suicidal ideations; F32.9 Major depressive disorder, single episode, unspecified; E11.9 Type 2 diabetes mellitus without complications; Z88.9 Allergy status to unspecified drugs, medicaments and biological substances
CPT/HCPCS: 36415; 80048; 80143; 80178; 80179; 80307; 80320; 82040; 84703; 85025; 99283; G0480

== ENCOUNTER 2020-06-20 09:36 | Emergency (ER) | payer MEDICARE, MEDICAID ==
[~2020-06-20] VITALS: Ht 170.2 cm; Wt 85.6 kg
--- NOTE | 2020-06-20 09:40 | NUR ---
pt BIB [facility] after being found [place] outside her [facility]. pt report, pt often wanders and was c/o chronic back pain. pt [facility] printed a list of pt medictions to give to [facility] upon admit, pt has no c/o. pt is ambulatoory and in no apparent reps. disress. pt is asking when she can have a doughnut. pt has a long psych hx and has a hx of dementia. calm and cooperative. answering questions and following commands. no vidible injuries noted
--- NOTE | 2020-06-20 10:11 | NUR ---
pt resting on gurney in no apparent distress with eyes closed
--- NOTE | 2020-06-20 10:42 | NUR ---
pt in RAD
--- NOTE | 2020-06-20 11:14 | NUR ---
pt ready for D/C. have attempted to contact pt prison to ick her up. spoke to a switchboard at the number on her medication list
--- NOTE | 2020-06-20 11:45 | NUR ---
pt is unaware of contact information for her [facility] residence resting in position of comfort meal tray ordered
--- NOTE | 2020-06-20 12:23 | NUR ---
pt resting. awaiting meal tray awaiting transport to [facility] via [facility]
--- NOTE | 2020-06-20 12:35 | NUR ---
meal tray delivered
[2020-06-20 13:04] VITALS: BP 112/58
== END 2020-06-20 13:08 | disposition home or self-care (01) ==
LOC: ED 10:05
DX: S39.012A Strain of muscle, fascia and tendon of lower back, initial encounter (principal); E11.9 Type 2 diabetes mellitus without complications; X58.XXXA Exposure to other specified factors, initial encounter; Y93.89 Activity, other specified; Y92.89 Other specified places as the place of occurrence of the external cause; Y99.8 Other external cause status
CPT/HCPCS: 72110; 99283

== ENCOUNTER 2020-06-20 15:20 | Emergency (ER) | payer MEDICARE, MEDICAID ==
[~2020-06-20] VITALS: Ht 172.7 cm; Wt 80.0 kg
[2020-06-20 15:27] VITALS: BP 113/78
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
--- NOTE | 2020-06-20 15:41 | NUR ---
ua collected and wlaked to lab
--- NOTE | 2020-06-20 15:42 | NUR ---
SI PRECAUTIONS IN PLACE, SITTER AT DOORWAY.
[2020-06-20 16:01] LABS: AMPHETAMINE SCREEN, URINE Negative (Negative); BARBITURATE SCREEN, URINE Negative (Negative); BENZODIAZEPINE SCREEN, URINE Positive (Negative); CANNABINOID SCREEN, URINE Negative (Negative); COCAINE SCREEN, URINE Negative (Negative); METHADONE SCREEN, URINE Negative (Negative); OPIATE SCREEN, URINE Negative (Negative)
[2020-06-20 16:10] LABS: ALBUMIN 3.9 g/dL (3.4-5.0); ANION GAP 6 mmol/L (5-15); CALCIUM 9.1 mg/dL (8.5-10.1); CHLORIDE 106 mmol/L (98-107); CREATININE 1.06 mg/dL (0.55-1.02)
[2020-06-20 16:11] LABS: SALICYLATE LEVEL < 1.7 mg/dL (2.8-20.0)
[2020-06-20 16:12] LABS: BASOPHILS % (AUTO) 1 % (0-1); EOSINOPHILS % (AUTO) 2 % (1-7); LYMPHOCYTES % (AUTO) 31 % (22-44); MEAN CORPUSCULAR HEMOGLOBIN 30.7 pg (27.0-34.8); MEAN CORPUSCULAR HGB CONC 33.2 g/dL (32.4-35.8); MEAN PLATELET VOLUME 8.4 fL (7.4-10.4); MONOCYTES % (AUTO) 6 % (2-9); NEUTROPHILS % (AUTO) 59 % (42-75); PLATELET COUNT 279 x10^3/uL (130-400); RED BLOOD COUNT 4.42 x10^6/uL (3.82-5.3)
[2020-06-20 16:16] LABS: MD NO
--- NOTE | 2020-06-20 17:14 | NUR ---
CARRI FRANCO COLLECTED AND WALKED TO LAB
--- NOTE | 2020-06-20 18:15 | NUR ---
pt resting in bed, no needs at this time. resp even and unlabored. sitter at doorway
--- NOTE | 2020-06-20 19:58 | NUR ---
pt resting in room. no needs at this time. pending u admit. sitter at doorway
== END 2020-06-20 21:52 ==
LOC: ED 16:47
DX: R45.851 Suicidal ideations (principal); Z20.822 Contact with and (suspected) exposure to COVID-19; F41.9 Anxiety disorder, unspecified; E11.9 Type 2 diabetes mellitus without complications; F17.210 Nicotine dependence, cigarettes, uncomplicated
CPT/HCPCS: 36415; 80048; 80299; 80307; 80320; 80329; 82040; 85025; 87426; 99285; G0480

== ENCOUNTER 2020-10-28 15:01 | Emergency (ER) | payer MEDICARE, MEDICAID ==
[~2020-10-28] VITALS: Ht 172.7 cm; Wt 80.0 kg
[~2020-10-28 15:01] MED LIST changes: +OLAN5TAB69 PO
[2020-10-28 15:13] VITALS: BP 106/58
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
--- NOTE | 2020-10-28 16:42 | NUR ---
SPOKE WITH LITZY FROM [facility] ([phone]), OKAY TO SEND PT BACK VIA CAB.
--- NOTE | 2020-10-28 17:12 | NUR ---
Patientgiven discharge instructions and they have confirmed that they understand the instructions. Patient ambulatory with steady gait. NAD, all questions answered appropriately, denies additional needs at this time. No personal belongings left in room after discharge.
== END 2020-10-28 17:17 | disposition home or self-care (01) ==
LOC: ED 17:00
DX: F25.0 Schizoaffective disorder, bipolar type (principal); E11.9 Type 2 diabetes mellitus without complications
CPT/HCPCS: 99283